=== PATIENT | male | born 1970 | race Caucasian/White ===

== ENCOUNTER 2016-08-29 08:52 | Emergency (ER) | payer OTHER ==
[~2016-08-29] VITALS: Ht 190.5 cm; Wt 100.0 kg
[2016-08-29 08:54] VITALS: BP 147/96; PULSE 94; RESP 12; TEMP 98; O2SAT 99
[2016-08-29] MEDS ORDERED: XANA1TAB2 PO (09:07)
--- NOTE | 2016-08-29 09:21 | PD ---
HPI Chief Complaint: Skin Problem Time Seen by Provider: 09:20 Travel History International Travel<30 days: No Contact w/Intl Traveler<30days: No Traveled to known affect area: No History of Present Illness HPI 46-year-old male presents to the emergency Department with complaint of a sunburn to the dorsal aspect of his right foot that occurred on Sunday. Reports swelling to his foot and ankle area. Reports pain only to the skin with some tenderness. Denies paresthesias, loss of sensation, decreased range of motion, decreased strength to the affected extremity. Denies fever, chills, nausea, vomiting. Has been applying aloe, elevating, and icing with no relief of symptoms. Says he has a sunburn to the top of his left foot also and there is no swelling to his left foot or ankle. No known allergies. History of PTSD. Primary care provider is [facility]. No other modifying factors or associated signs and symptoms. PFSH Social History Tobacco Use: No Allergies-Medications (Allergen,Severity, Reaction): Coded Allergies: No Known Allergies (Unverified , 08/29/16) Reported Meds & Prescriptions Reported Meds & Active Scripts Active Ibuprofen 800 Mg Tab 800 Mg PO Q6HR PRN Keflex (Cephalexin) 500 Mg Cap 500 Mg PO Q6H 10 Days Bactrim DS (Sulfamethoxazole-Trimethoprim) 800-160 Mg Tab 1 Tab PO BID 10 Days Reported Xanax (Alprazolam) 1 Mg Tab 1 Mg PO Q8H PRN Review of Systems Except as stated in HPI: all other systems reviewed are Neg Physical Exam Narrative GENERAL: Well-nourished, well-developed male patient, in no acute distress SKIN: Warm and dry. First degree sunburn noted to the dorsal aspect of the right foot; without blistering or open areas. Right foot and ankle with 2+ pitting edema. Right lower extremity supple and non-tense with 2+ pedal pulse and sensory intact and with full range of motion and strength. HEAD: Atraumatic. Normocephalic. EYES: Pupils equal and round. No scleral icterus. No injection or drainage. ENT: Mucosa pink and moist. Airway patent. NECK: Trachea midline. CARDIOVASCULAR: Regular rate. RESPIRATORY: No accessory muscle use. GASTROINTESTINAL: Flat. MUSCULOSKELETAL: No obvious deformities. No clubbing. No cyanosis. No edema. NEUROLOGICAL: Awake and alert. Oriented 3. No obvious cranial nerve deficits. Motor grossly within normal limits. Normal speech. PSYCHIATRIC: Appropriate mood and affect; insight and judgment normal. Data Data Last Documented VS Vital Signs Date Time Temp Pulse Resp B/P Pulse Ox O2 Delivery O2 Flow Rate FiO2 08/29/16 08:54 98.0 94 12 147/96 99 Orders Silver Sulfadia 1% Crm (50 Gm) (Silvaden (08/29/16 09:30) Ibuprofen (Motrin) (08/29/16 09:30) Wound Care (08/29/16 09:24) MDM Medical Decision Making Medical Screen Exam Complete: Yes Emergency Medical Condition: Yes Medical Record Reviewed: Yes Differential Diagnosis Sunburn, soft tissue swelling, dependent edema, cellulitis Narrative Course 46-year-old male with a first-degree sunburn to the dorsal aspect of his right foot with 2+ pitting edema noted to the right foot and ankle. The right lower extremity supplemented with 2+ pedal pulses and sensory intact. Patient is afebrile and nontoxic appearing. Denies fever, chills, nausea, vomiting. I will treat the patient for possible cellulitis. Silvadene cream ordered and applied to the dorsal aspect of the right foot in the ER. Bactrim, Keflex, ibuprofen prescribed for home. Patient verbalizes understanding and agreement with treatment plan. Patient is medically cleared and stable for discharge. Discussed reasons to return to the emergency department. Instructed patient to follow up with primary care provider. Patient agrees with treatment plan. The patients vital signs are stable and the patient is stable for outpatient follow- up and treatment. Patient discharged home, stable and in no acute distress. Diagnosis Primary Impression: Sunburn of first degree Additional Impression: Edema of right foot Referrals: Primary Care Physician Patient Instructions: Edema (ED), General Instructions, Sunburn (ED) Departure Forms: Tests/Procedures, Work Release Enter return to work date: Aug 30, 2016 Additional Instructions: Silvadene cream as directed and as needed for sunburn management Tylenol or ibuprofen as directed and as needed for pain and inflammation Rest, ice, compress, and elevate extremity to decrease pain and inflammation Avoid aggravating activity; increase activity as tolerated Follow-up with primary care provider Return to the emergency department immediately with worsening symptoms Med/Other Pt SpecificInfo: Prescription(s) given Scripts Ibuprofen 800 Mg [id number] Mg PO Q6HR PRN (PAIN) #30 TAB Ref 0 Prov:Kimberly Garcia 08/29/16 Cephalexin (Keflex)500 Mg [id number] Mg PO Q6H 10 Days Ref 0 Prov:Kimberly Garcia 08/29/16 Sulfamethoxazole-Trimethoprim (Bactrim DS)800-160 Mg Tab1 Tab PO BID 10 Days Ref 0 Prov:Kimberly Garcia 08/29/16 Disposition: 01 DISCHARGE HOME Condition: Stable Kimberly Garcia Aug 29, 2016 09:21
[2016-08-29] MEDS ORDERED: BACT800T5 PO (09:24)
[2016-08-29] MEDS ORDERED: IBUP800T23 PO (09:24)
[2016-08-29] MEDS ORDERED: CEPH-460 PO (09:24)
[2016-08-29] MEDS ORDERED: IBUPROFEN 800 MG TAB PO ONE (09:30)
[2016-08-29] MEDS ORDERED: SILVER SULFADIAZINE 1% CR 50 GM JAR TOPICAL ONE (09:30)
== END 2016-08-29 09:48 | disposition home or self-care (01) ==
LOC: NETRI 08:52
DX: L55.0 Sunburn of first degree (principal)
CPT/HCPCS: 99282